=== PATIENT | male | born 1975 | race Caucasian/White ===

== ENCOUNTER 2016-12-31 08:17 | Inpatient (IN) | payer OTHER ==
[2016-12-31 09:23] LABS: HEMOGLOBIN 14.3 gm/dl (14.0-17.5); RED BLOOD COUNT 4.84 M/UL (4.20-5.50); WHITE BLOOD COUNT 8.1 K/UL (4.5-11.0)
[2016-12-31 09:43] LABS: BUN/CREATININE RATIO 21 (0-10)
[2017-01-01 06:26] LABS: HEMOGLOBIN 13.9 gm/dl (14.0-17.5); RED BLOOD COUNT 4.73 M/UL (4.20-5.50)
[2017-01-01 06:30] LABS: WHITE BLOOD COUNT 5.2 K/UL (4.5-11.0)
[2017-01-01 06:42] LABS: BUN/CREATININE RATIO 9 (0-10)
[2017-01-02 05:50] LABS: HEMOGLOBIN 12.9 gm/dl (14.0-17.5); RED BLOOD COUNT 4.43 M/UL (4.20-5.50)
[2017-01-02 05:56] LABS: WHITE BLOOD COUNT 9.8 K/UL (4.5-11.0)
[2017-01-02 06:14] LABS: BUN/CREATININE RATIO 12 (0-10)
[2017-01-02] MEDS ORDERED: LORTAB 7.5-3251 EACH PO (12:30)
[2017-01-02] MEDS ORDERED: CIPRO500 MG PO (12:31)
== END 2017-01-02 13:10 | disposition home or self-care (01) | DRG 418 ==
LOC: ER1 08:17 → ZEROF 12:59 → M/S 15:22
PROVIDERS: Physician Assistant; Surgery; ADMIT Internal Medicine Infectious Disease
PROC: BF101ZZ Fluoroscopy of Bile Ducts using Low Osmolar Contrast (ICD-10-PCS; 2017-01-01)
PROC: 0FT44ZZ Resection of Gallbladder, Percutaneous Endoscopic Approach (ICD-10-PCS; principal; 2017-01-01 08:00)
PROC: 0WQF0ZZ Repair Abdominal Wall, Open Approach (ICD-10-PCS; 2017-01-01 08:00)
DX: K80.00 Calculus of gallbladder with acute cholecystitis without obstruction (principal); L03.316 Cellulitis of umbilicus; K42.9 Umbilical hernia without obstruction or gangrene; K21.9 Gastro-esophageal reflux disease without esophagitis; N20.0 Calculus of kidney; Z82.49 Family history of ischemic heart disease and other diseases of the circulatory system
CPT/HCPCS: 36415; 47531; 76705; 80053; 80076; 81001; 82150; 83690; 83735; 85025; 85027; 94640; 94664; 96372; 96374; 96375; 99285; C9113; J0500; J1100; J1335; J1650; J1885; J1956; J2270; J2405; J2710; J3010; J7030; J7040; J7050; J7120; Q9962